=== PATIENT | male | born 1980 | race Hispanic/Latino ===

== ENCOUNTER 2019-12-03 20:18 | Emergency (ER) | payer OTHER ==
--- NOTE | 2019-12-03 21:03 | RAD ---
RIGHT ANKLE THREE VIEW: 12/03/19 HISTORY: Injury. COMPARISON: None. FINDINGS: There is an ossicle on the deltoid ligament on the medial ankle mortise from old injury. There is bim alleolar soft tissue swelling, greater along the lateral ankle. No acute displaced fracture or malali gnment. IMPRESSION: 1. Old deltoid ligament injury. 2. Lateral ankle sprain. 3. No acute fracture. POS: HOME
[2019-12-03] MEDS ORDERED: HYDROcodone/Acetaminophen 10/325 mg Tablet ONE (21:45)
== END 2019-12-03 21:50 | disposition home or self-care (01) ==
LOC: ERS 20:18
DX: S93.401A Sprain of unspecified ligament of right ankle, initial encounter (principal); F17.210 Nicotine dependence, cigarettes, uncomplicated; X50.1XXA Overexertion from prolonged static or awkward postures, initial encounter

== ENCOUNTER 2024-07-27 10:31 | Inpatient (IN) | payer OTHER, SELFPAY ==
[~2024-07-27 10:31] MED LIST: Iopamidol-370 76% 500 ML MDV (1 ML CHARGE) ONE
[2024-07-27] MEDS ORDERED: fentaNYL 50 mcg/mL 1 mL Vial ONE ×2 (10:40→11:15)
[2024-07-27] MEDS ORDERED: Ondansetron PF 4 MG/2 ML Vial ONE ×2 (10:40→11:49)
[2024-07-27] MEDS ORDERED: Boostrix 0.5 ML (Tdap) VIAL (>/=7 yrs of age) ONE (10:54)
[2024-07-27] MEDS ORDERED: metroNIDAZOLE 500 MG (100 mL) BAG ONE (10:54)
[2024-07-27] MEDS ORDERED: Fentanyl 250 MCG/5 ML VIAL ONE (10:58)
[2024-07-27] MEDS ORDERED: PROPOFOL 20 ML ONE (10:58)
[2024-07-27 10:59] LABS: #Basophils 0.04 10x3/uL (0.0-0.2); %Basophils 0.3 % (0.0-1.0); %Eosinophils 0.6 % (0.0-10.0); %Lymphocytes 12.8 % (21.0-51.0); %Monocytes 3.8 % (0.0-10.0); %Neutrophils 81.3 % (42.0-75.0); Hematocrit 47.2 % (42.0-52.0); Hemoglobin 16.1 g/dL (14.0-18.0); Mean Corpuscular HGB CONC 34.1 g/dL (32.0-36.0); Mean Corpuscular Hemoglobin 31.3 pg (27.0-31.0); Mean Corpuscular Volume 91.7 fL (78.0-98.0); Mean Platelet Volume 12.1 fL (7.4-10.4); Platelet Count 157 10x3/uL (130-400); RBC Distribution Width 12.9 % (11.5-14.5); Red Blood Cell (RBC) Count 5.15 mill/uL (4.70-6.10)
[2024-07-27] MEDS ORDERED: SUCCINYLCHOLINE/SOD CL,ISO/PF 200 MG/10 ML SYRINGE FS ONE (11:00)
[2024-07-27] MEDS ORDERED: Rocuronium Bromide 10 MG/ML (10ML VIAL) ONE (11:00)
[2024-07-27] MEDS ORDERED: Vancomycin 1 GM VIAL ONE ×2 (11:05→12:45)
[2024-07-27] MEDS ORDERED: Morphine 2 MG/ML VIAL SLOW IVP PRN (11:17)
[2024-07-27] MEDS ORDERED: Dextrose 50% Abboject 50 ML SYRINGE SLOW IVP PRN (11:17)
[2024-07-27] MEDS ORDERED: Ondansetron PF 4 MG/2 ML Vial IVP PRN (11:17)
[2024-07-27] MEDS ORDERED: Dextrose 5% in Water 1,000 ML IV PRN (11:17)
[2024-07-27] MEDS ORDERED: Glucagon 1 MG/ML KIT IM PRN (11:17)
[2024-07-27] MEDS ORDERED: hydrALAZINE 20 MG/ML VIAL SLOW IVP PRN (11:17)
[2024-07-27] MEDS ORDERED: Ondansetron ODT 4 MG TAB PO PRN (11:17)
[2024-07-27 11:18] LABS: Alcohol Less than 10.0 mg/dL (Less than 10); INR-International Normal Ratio 1.3; Prothrombin Time 15.8 sec (12.0-14.7)
[2024-07-27 11:19] LABS: PTT 34.9 sec (22.9-36.1)
[2024-07-27 11:21] LABS: ALT (SGPT) 19 U/L (8-55); AST (SGOT) 20 U/L (5-34); Albumin 3.7 g/dL (3.5-5.0); Alkaline Phosphatase 49 U/L (40-110); Anion Gap 15 mmol/L (10-20); BUN (Urea Nitrogen) 11 mg/dL (8.9-20.6); Bilirubin, Total 0.4 mg/dL (0.2-1.2); Calc. Creatinine Clearance 0 mL/min (70-130); Calcium 8.5 mg/dL (7.8-10.44); Carbon Dioxide 16 mmol/L (22-29); Chloride 110 mmol/L (98-107); Estimated GFR 115; Globulin 2.8 g/dL (2.4-3.5); Glucose 159 mg/dL (70-105); Lipase 21 U/L (8-78); Potassium 3.7 mmol/L (3.5-5.1); Protein, Total 6.5 g/dL (6.0-8.3); Sodium 137 mmol/L (136-145)
[2024-07-27 11:25] LABS: Troponin I Less than 0.010 ng/mL (< 0.028)
[2024-07-27] MEDS ORDERED: Sodium Chloride 0.9% 100 ML ONE (11:39)
[2024-07-27] MEDS ORDERED: cefTRIAXone (ROCEPHIN) 2 GM VIAL ONE (11:39)
[2024-07-27] MEDS ORDERED: Dexamethasone 20 MG/5 ML VIAL ONE (11:49)
[2024-07-27] MEDS ORDERED: Ketorolac Tromethamine 30 MG (1 mL) VIAL ONE (11:49)
[2024-07-27] MEDS ORDERED: Gentamicin Sulfate 120 MG in Premix 1 BAG IVPB SCH (12:00)
[2024-07-27] MEDS ORDERED: Tobramycin Sulfate 1.2 GM VIAL ONE (12:46)
[2024-07-27] MEDS ORDERED: SUGAMMADEX SODIUM 200 MG/2 ML VIAL ONE (12:47)
[2024-07-27] MEDS ORDERED: Promethazine HCl 25 MG/ML VIAL IM PRN (13:18)
[2024-07-27] MEDS ORDERED: Ondansetron HCl/PF 4 MG/2 ML Vial IVP PRN (13:18)
[2024-07-27] MEDS ORDERED: PACU-Morphine 4MG/ML VIAL SLOW IVP PRN (13:18)
[2024-07-27] MEDS ORDERED: HYDROmorphone 2 MG/ML VIAL SLOW IVP PRN (13:18)
[2024-07-27] MEDS ORDERED: CEFAZOLIN 2 GM in Sodium Chloride 0.9% 100 ML IVPB SCH (14:00)
[2024-07-27] MEDS ORDERED: fentaNYL PF 100 MCG/2 ML SYRINGE ONE (14:39)
[2024-07-27] MEDS: TETANUS, DIPHTHERIA TOX,ADULT (TDVAX) 0.5 ML VIAL IM ONE (15:44)
[2024-07-27] MEDS: HYDROcodone/Acetaminophen 5/325 mg Tablet PO PRN (16:05)
[2024-07-27 16:21] VITALS: BMI 28.7
[2024-07-27] MEDS: metroNIDAZOLE 500 MG in Premix 1 BAG IVPB SCH (20:23)
[2024-07-27] MEDS: Methocarbamol 500 MG TAB PO PRN (21:05)
[2024-07-28] MEDS: traMADol HCl 50 MG TAB PO PRN (04:21)
[2024-07-28 06:03] LABS: #Basophils Less than 0.03 10x3/uL (0.0-0.2); #Eosinophils Less than 0.03 10x3/uL (0.0-0.7); %Basophils 0.1 % (0.0-1.0); %Eosinophils 0.1 % (0.0-10.0); %Lymphocytes 15.9 % (21.0-51.0); %Monocytes 10.4 % (0.0-10.0); %Neutrophils 73.2 % (42.0-75.0); Hematocrit 35.1 % (42.0-52.0); Mean Corpuscular HGB CONC 34.2 g/dL (32.0-36.0); Mean Corpuscular Hemoglobin 30.9 pg (27.0-31.0); Mean Corpuscular Volume 90.5 fL (78.0-98.0); Mean Platelet Volume 12.7 fL (7.4-10.4); Platelet Count 137 10x3/uL (130-400); RBC Distribution Width 13.2 % (11.5-14.5); Red Blood Cell (RBC) Count 3.88 mill/uL (4.70-6.10)
[2024-07-28 06:12] LABS: Anion Gap 12 mmol/L (10-20); BUN (Urea Nitrogen) 14 mg/dL (8.9-20.6); Calc. Creatinine Clearance 147 mL/min (70-130); Calcium 7.8 mg/dL (7.8-10.44); Carbon Dioxide 23 mmol/L (22-29); Chloride 106 mmol/L (98-107); Estimated GFR 112; Glucose 116 mg/dL (70-105); Potassium 4.1 mmol/L (3.5-5.1); Sodium 137 mmol/L (136-145)
[2024-07-28] MEDS: Enoxaparin 40 MG (0.4 mL) SYRINGE SC SCH (08:53)
[2024-07-28] MEDS: cefTRIAXone\\ROCEPHIN 1 GM in Sodium Chloride 0.9% 100 ML IVPB SCH (12:41)
[2024-07-28] MEDS: Senokot S 8.6-50 MG TAB PO SCH (19:53)
[2024-07-29 06:28] LABS: Anion Gap 11 mmol/L (10-20); BUN (Urea Nitrogen) 10 mg/dL (8.9-20.6); Calc. Creatinine Clearance 179 mL/min (70-130); Calcium 7.9 mg/dL (7.8-10.44); Carbon Dioxide 22 mmol/L (22-29); Chloride 103 mmol/L (98-107); Estimated GFR 118; Glucose 118 mg/dL (70-105); Potassium 3.6 mmol/L (3.5-5.1); Sodium 132 mmol/L (136-145)
[2024-07-29 06:51] LABS: Band 9 % (5-11); Lymphocytes 10 % (21-51); Monocytes 4 % (0-10); Neutrophil 75 % (42-75); Platelet Adequacy Comment Platelets Decreased; Polychromasia SLIGHT = 2-3 cells HPF (0-2); Reactive Lymphocytes 1 % (0-10)
[2024-07-29 06:59] LABS: Hematocrit 29.3 % (42.0-52.0); Hemoglobin 10.4 g/dL (14.0-18.0); Mean Corpuscular HGB CONC 35.3 g/dL (32.0-36.0); Mean Corpuscular Hemoglobin 31.6 pg (27.0-31.0); Mean Corpuscular Volume 89.7 fL (78.0-98.0); Mean Platelet Volume 12.4 fL (7.4-10.4); Platelet Count 116 10x3/uL (130-400); RBC Distribution Width 12.6 % (11.5-14.5); Red Blood Cell (RBC) Count 3.29 mill/uL (4.70-6.10)
[2024-07-29] MEDS ORDERED: CEFAZOLIN 2 GM in Sodium Chloride 0.9% 100 ML IVPB SCH (09:00)
[2024-07-29] MEDS: Acetaminophen 325 MG TAB PO PRN (14:49)
[2024-07-30] MEDS ORDERED: Vancomycin 1 GM VIAL ONE (08:24)
[2024-07-30] MEDS ORDERED: Tobramycin Sulfate 1.2 GM VIAL ONE (08:24)
[2024-07-30] MEDS ORDERED: CEFAZOLIN 2 GM VIAL ONE (08:46)
[2024-07-30] MEDS ORDERED: PROPOFOL 20 ML ONE (09:13)
[2024-07-30] MEDS ORDERED: Rocuronium Bromide 10 MG/ML (10ML VIAL) ONE (09:13)
[2024-07-30] MEDS ORDERED: SUCCINYLCHOLINE/SOD CL,ISO/PF 200 MG/10 ML SYRINGE FS ONE (09:13)
[2024-07-30] MEDS ORDERED: fentaNYL PF 100 MCG/2 ML SYRINGE ONE ×3 (09:13→12:35)
[2024-07-30] MEDS ORDERED: Midazolam HCl 2 mg/2 ml Vial ONE (09:14)
[2024-07-30] MEDS ORDERED: NEOSTIGMINE 3 MG/3 ML SYRINGE ONE (09:15)
[2024-07-30] MEDS ORDERED: Glycopyrrolate 0.2 MG/ML 5 ML SYRINGE ONE (09:15)
[2024-07-30] MEDS ORDERED: Ondansetron PF 4 MG/2 ML Vial ONE (09:16)
[2024-07-30] MEDS ORDERED: Dexamethasone 20 MG/5 ML VIAL ONE (09:16)
[2024-07-30] MEDS ORDERED: Lidocaine 1% PF 5 ML VIAL ONE (09:35)
[2024-07-30] MEDS ORDERED: HYDROmorphone 2 MG/ML VIAL ONE (10:35)
[2024-07-30] MEDS ORDERED: PHENYLEPHRINE-NS 100 MCG/ML 10 ML SYRINGE ONE (10:39)
[2024-07-30] MEDS ORDERED: Ketorolac Tromethamine 30 MG (1 mL) VIAL ONE (11:58)
[2024-07-31 06:04] LABS: #Basophils Less than 0.03 10x3/uL (0.0-0.2); #Eosinophils Less than 0.03 10x3/uL (0.0-0.7); %Basophils 0.1 % (0.0-1.0); %Lymphocytes 8.4 % (21.0-51.0); %Monocytes 7.5 % (0.0-10.0); %Neutrophils 83.4 % (42.0-75.0); Hematocrit 20.7 % (42.0-52.0); Hemoglobin 7.3 g/dL (14.0-18.0); Mean Corpuscular HGB CONC 35.3 g/dL (32.0-36.0); Mean Corpuscular Hemoglobin 31.1 pg (27.0-31.0); Mean Corpuscular Volume 88.1 fL (78.0-98.0); Mean Platelet Volume 12.3 fL (7.4-10.4); Platelet Count 187 10x3/uL (130-400); RBC Distribution Width 12.5 % (11.5-14.5); Red Blood Cell (RBC) Count 2.35 mill/uL (4.70-6.10)
[2024-07-31] MEDS: Ascorbic Acid 500 mg Chewable Tablet PO SCH (08:35)
[2024-07-31] MEDS: Ferrous Sulfate 325 MG TAB PO SCH (08:39)
[2024-07-31 15:08] VITALS: TEMP 98.4
[2024-07-31 15:22] VITALS: BP 125/71
== END 2024-07-31 18:27 | disposition home or self-care (01) | DRG 481 ==
LOC: ERS 10:31 → SDC 11:27 → SURG A 15:12 → SDC 07-28 09:13 → SURG A 07-28 09:14
PROVIDERS: ADMIT Surgery; ATTEND Orthopaedic Surgery
PROC: 0QH Lower Bones, Insertion (ICD-10-PCS; 2024-07-27)
PROC: 0KBR0ZZ Excision of Left Upper Leg Muscle, Open Approach (ICD-10-PCS; 2024-07-27)
PROC: 0QSC06Z Reposition Left Lower Femur with Intramedullary Internal Fixation Device, Open Approach (ICD-10-PCS; principal; 2024-07-30)
PROC: 0QPCX5Z Removal of External Fixation Device from Left Lower Femur, External Approach (ICD-10-PCS; 2024-07-30)
DX: S72.402C Unspecified fracture of lower end of left femur, initial encounter for open fracture type IIIA, IIIB, or IIIC (principal); T79.7XXA Traumatic subcutaneous emphysema, initial encounter; F17.210 Nicotine dependence, cigarettes, uncomplicated; V29.408A Other motorcycle driver injured in collision with unspecified motor vehicles in traffic accident, initial encounter; D64.89 Other specified anemias
CPT/HCPCS: 36415; 36430; 70450; 71045; 71260; 72125; 72170; 74177; 80048; 80053; 80307; 83690; 84484; 85025; 85610; 85730; 86850; 86900; 86901; 90471; 90715; 93005; 94760; 96365; 96374; 96375; C1713; C1776; G0390; J0696; J1100; J1171; J1580; J1650; J1885; J2250; J2405; J2704; J3010; J3260; J3370; P9016; Q9967